=== PATIENT | female | born 1990 | race African-American/Black ===

== ENCOUNTER 2019-02-18 06:25 | Emergency (ER) | payer MEDICAID, OTHER ==
[~2019-02-18] VITALS: Ht 157.5 cm; Wt 58.1 kg
[2019-02-18 06:30] VITALS: BP 130/98
--- NOTE | 2019-02-18 06:31 | NUR ---
28 Y/O FEMALE BIBA FOR LEFT KNEE PAIN S/P FALL THIS MORNING. PAIN IS A 10/10 ACUTE PAIN. A/OX4 AND FOLLOWS COMMANDS. PATIENT IS UNABLE TO AMBULATE. LEFT KNEE SWELLING NOTED. PAIN UPON PALPATION NOTED. DENIES N/V/D/FEVER/CHILLS. VSS. ERMD MADE AWARE OF STATUS. SIDE RAILSX1. PMH:DENIES RX:DENIES NKDA
[2019-02-18] MEDS ORDERED: KETOROLAC 30 MG/ML VIAL IM ONE (06:50)
--- NOTE | 2019-02-18 07:28 | NUR ---
Pt report given to ARAMIS KRAMER. Transfer of care at this time.
--- NOTE | 2019-02-18 07:32 | NUR ---
PT DOES NOT WISH TO PROVIDE URINE SAMPLE AT THIS TIME.
--- NOTE | 2019-02-18 07:49 | NUR ---
EMT AT [facility] TO PROVIDE FLORES WRAP AND CRUTCHES.
--- NOTE | 2019-02-18 09:08 | NUR ---
PT RESTING IN BED SPEAKING ON CELL PHONE.
[2019-02-18 09:50] VITALS: BP 130/98
--- NOTE | 2019-02-18 09:51 | NUR ---
GINA VOUCHER PROVIDED TO PT.
== END 2019-02-18 09:47 | disposition home or self-care (01) ==
LOC: MED 06:25
DX: S83.92XA Sprain of unspecified site of left knee, initial encounter (principal); W01.0XXA Fall on same level from slipping, tripping and stumbling without subsequent striking against object, initial encounter; Y93.89 Activity, other specified; Y92.89 Other specified places as the place of occurrence of the external cause; Y99.8 Other external cause status
CPT/HCPCS: 73562; 96372; 99283; J1885

== ENCOUNTER 2019-07-06 22:05 | Emergency (ER) | payer MEDICAID, OTHER ==
[~2019-07-06] VITALS: Ht 162.6 cm; Wt 54.0 kg
[2019-07-06 22:09] VITALS: BP 106/67
[2019-07-06 23:02] LABS: BASOPHILS # (AUTO) 0.1 K/uL (0.00-0.22); BASOPHILS % (AUTO) 0.7 % (0.0-2.0); EOSINOPHILS # (AUTO) 0.1 K/uL (0-0.4); EOSINOPHILS % (AUTO) 0.9 % (0.0-4.0); HEMATOCRIT 35.9 % (36-48); HEMOGLOBIN 12.3 g/dL (12.0-16.0); LYMPHOCYTES # (AUTO) 2.5 K/uL (2.5-16.5); LYMPHOCYTES % (AUTO) 29.9 % (20.5-51.1); MEAN CORPUSCULAR HEMOGLOBIN 31 pg (27-31); MEAN CORPUSCULAR HGB CONC 34 g/dL (33-37); MEAN CORPUSCULAR VOLUME 91.2 fL (80-94); MONOCYTES # (AUTO) 0.7 K/uL (0.8-1.0); MONOCYTES % (AUTO) 8.4 % (1.7-9.3); NEUTROPHILS % (AUTO) 60.1 % (42.2-75.2); PLATELET COUNT (AUTO) 283 K/uL (140-450); RED BLOOD CELL COUNT(AUTO) 3.94 MIL/uL (4.20-5.40); RED CELL DISTRIBUTION WIDTH 11.9 % (11.6-13.7); WHITE BLOOD COUNT (AUTO) 8.4 K/uL (4.8-10.8)
[2019-07-06 23:08] VITALS: BP 106/67
[2019-07-06 23:17] LABS: ALBUMIN 3.7 g/dL (3.4-5.0); CARBON DIOXIDE 28.4 mmol/L (21-32); CREATININE 0.8 mg/dL (0.6-1.3); POTASSIUM 3.4 mmol/L (3.5-5.1)
== END 2019-07-06 23:08 | disposition home or self-care (01) ==
LOC: MED 22:05
DX: O03.9 Complete or unspecified spontaneous abortion without complication (principal)
CPT/HCPCS: 36415; 76801; 80053; 84702; 85025; 86900; 86901; 99284; Q0092

== ENCOUNTER 2019-11-16 11:07 | Emergency (ER) | payer OTHER ==
[~2019-11-16] VITALS: Ht 157.5 cm; Wt 52.8 kg
[2019-11-16 11:09] VITALS: BP 106/64
[2019-11-16] MEDS ORDERED: DOPPLER MC ONE (11:20)
--- NOTE | 2019-11-16 11:23 | NUR ---
29/F C/O SUPRAPUBIC PAIN, SHARP SENSATION, 8/10 PAIN, NON RADIATING X 4 DAYS. VOMITING SINCE YESTERDAY, DENIES HEMATEMESIS. UNABLE TO TOLERATE FOOD OR FLUIDS. CURRENTLY 9 WEEKS . DENIES DYSURIA,DIARRHEA, F/C. REGULAR BM. STATES MILD DIZZINESS AND GENERALIZED WEAKNESS. LMP 2 MONTHS AGO 3 MISCARRIAGE 1 LIVING 1 HX NO
--- NOTE | 2019-11-16 11:24 | NUR ---
DENIES VAGINAL BLEEDING
--- NOTE | 2019-11-16 11:47 | NUR ---
L&D NURSE AT BEDSIDE TO TRY TO OBTAIN HEART TONES, PER L&D NURSE NO HEART TONES AUSCULATATED.
[2019-11-16] MEDS: ONDANSETRON 4 MG ODT PO ONE (11:52)
--- NOTE | 2019-11-16 11:54 | NUR ---
PT UNABLE TO PROVIDE URINE SAMPLE AT THIS TIME, STATES HAS BEEN VOMITING MANY TIMES. DR. CLANCY MADE AWARE.
--- NOTE | 2019-11-16 12:01 | NUR ---
SENIOR LOSS CONTROL SPECIALIST AT BEDSIDE FOR BLOOD DRAW
[2019-11-16 12:07] LABS: BASOPHILS % (AUTO) 0.5 % (0.0-2.0); EOSINOPHILS # (AUTO) 0.1 K/uL (0-0.4); EOSINOPHILS % (AUTO) 0.8 % (0.0-4.0); HEMOGLOBIN 11.2 g/dL (12.0-16.0); LYMPHOCYTES # (AUTO) 1.8 K/uL (2.5-16.5); LYMPHOCYTES % (AUTO) 26.3 % (20.5-51.1); MEAN CORPUSCULAR HEMOGLOBIN 31 pg (27-31); MEAN CORPUSCULAR HGB CONC 34 g/dL (33-37); MEAN CORPUSCULAR VOLUME 90.4 fL (80-94); MONOCYTES # (AUTO) 0.6 K/uL (0.8-1.0); MONOCYTES % (AUTO) 9.2 % (1.7-9.3); NEUTROPHILS # (AUTO) 4.3 K/uL (1.8-7.7); NEUTROPHILS % (AUTO) 63.2 % (42.2-75.2); PLATELET COUNT (AUTO) 266 K/uL (140-450); RED BLOOD CELL COUNT(AUTO) 3.65 MIL/uL (4.20-5.40); RED CELL DISTRIBUTION WIDTH 12.1 % (11.6-13.7); WHITE BLOOD COUNT (AUTO) 6.8 K/uL (4.8-10.8)
--- NOTE | 2019-11-16 12:07 | NUR ---
U/S TECH AT BEDSIDE
--- NOTE | 2019-11-16 12:29 | NUR ---
DR. CLANCY EVALUATING PT AT BEDSIDE
[2019-11-16] MEDS: NACL 0.9% 1,000 ML IV ONE (12:51)
--- NOTE | 2019-11-16 12:53 | NUR ---
COVERING PRIMARY RN FOR LUNCH RELIEF -- ESTABLISHED SALINE LOCK TO RIGHT AC 20G, INFUSING 1L NS WITHOUT ISSUE. ENCOURAGED PATIENT TO VOID.
--- NOTE | 2019-11-16 13:18 | NUR ---
PT STILL UNABLE TO PROVIDE URINE SAMPLE AT THIS TIME, IVF NS INFUSING. PT STATES SHE WILL TRY AGAIN IN [address] ASTON SLAUGHTER.
--- NOTE | 2019-11-16 13:44 | NUR ---
URINE DIPSTICK RESULTS HANDED TO DR. CLANCY
[2019-11-16 14:04] VITALS: BP 100/72
== END 2019-11-16 14:04 | disposition home or self-care (01) ==
LOC: MED 11:07
DX: O21.9 Vomiting of pregnancy, unspecified (principal); O26.892 Other specified pregnancy related conditions, second trimester; R10.9 Unspecified abdominal pain; Z3A.10 10 weeks gestation of pregnancy
CPT/HCPCS: 36415; 76801; 81002; 84702; 85025; 96360; 99284; J7030; Q0092; Q0162

== ENCOUNTER 2020-05-21 05:20 | Observation (INO) | payer MEDICAID, SELFPAY ==
[~2020-05-21] VITALS: Ht 165.1 cm; Wt 65.8 kg
[2020-05-21] MEDS ORDERED: PNV91TAB8 PO (05:41)
[2020-05-21 05:54] VITALS: BP 107/61
[2020-05-21 05:56] LABS: APPEARANCE,URINE SL CLOUDY (CLEAR); BILIRUBIN,URINE NEGATIVE (NEGATIVE); BLOOD, URINE 1+ (NEGATIVE); COLOR,URINE YELLOW (YELLOW); LEUKOCYTE ESTERASE ,URINE TRACE (NEGATIVE); UGLUCOSE NEGATIVE (NEGATIVE)
[2020-05-21 06:05] LABS: WBC,URINE 0-5 /HPF (0-5)
[2020-05-21 06:07] LABS: NITRITE, URINE POSITIVE (NEGATIVE)
[2020-05-21] MEDS: LACTATED RINGERS 1,000 ML IV SCH ×2 (06:32→07:00)
[2020-05-21] MEDS ORDERED: NACL 0.9% 1,000 ML IV SCH (07:45)
--- NOTE | 2020-05-21 08:58 | NUR ---
PATIENT HAS BEEN SCREENED AND CATEGORIZED LOW NUTRITION RISK. PATIENT WILL BE SEEN WITHIN 7 DAYS OF ADMISSION. 05/27/[address]
== END 2020-05-21 14:25 | disposition home or self-care (01) ==
LOC: MLD 05:20
PROVIDERS: ADMIT Obstetrics & Gynecology; ATTEND Obstetrics & Gynecology
DX: O62.9 Abnormality of forces of labor, unspecified (principal); Z20.822 Contact with and (suspected) exposure to COVID-19; Z3A.36 36 weeks gestation of pregnancy
CPT/HCPCS: 81000; 81001; 87426; 96361; 96365; G0378; J0696; J7060; J7120; 96360

== ENCOUNTER 2020-10-16 17:35 | Emergency (ER) | payer MEDICAID, SELFPAY ==
[~2020-10-16] VITALS: Ht 157.5 cm; Wt 63.5 kg
[~2020-10-16 17:35] MED LIST: PNV91TAB8 PO
[2020-10-16 17:40] VITALS: BP 122/74
--- NOTE | 2020-10-16 18:19 | NUR ---
PT AMBULATED TO BED 5
--- NOTE | 2020-10-16 18:20 | NUR ---
30 Y/O FEMALE CAME IN TO THE ER C/O INGROWN HAIR IN THE VAGINAL AREA X 1 WEEK. PT STATES "I HAD AN INGROWN HAIR, AND WHEN I SHAVED IT, IT WAS REALLY PAINFUL, WHEN I WAS HAVING INTERCOURSE, IT ALSO WAS PAINFUL. THE VAGINAL SKIN AREA HAS A PAIN OF 10/10." PMH: DEMETRIUS CARLOS
[2020-10-16 18:25] VITALS: BP 122/74
--- NOTE | 2020-10-16 18:59 | NUR ---
Female Broaching Machine Repairer accompanied female patient for Vaginal Exam. Patient tolerated well.
[2020-10-16] MEDS ORDERED: LIDOCAINE/EPI 1% 1:100000 20 ML VIAL INJ ONE ×2 (19:15→19:25)
[2020-10-16] MEDS ORDERED: ACET-8386 PO (20:23)
[2020-10-16] MEDS ORDERED: IBUP-2213 PO (20:23)
--- NOTE | 2020-10-16 20:36 | NUR ---
PT. LEFT WITHOUT DISCHARGE PAPERS AND PRESCRIPTION PAPER.
== END 2020-10-16 20:36 | disposition home or self-care (01) ==
LOC: MED 17:35
DX: N76.4 Abscess of vulva (principal)
CPT/HCPCS: 56405; 81002; 81025; 99284; J2001

== ENCOUNTER 2023-06-08 12:26 | Emergency (ER) | payer MEDICAID ==
[~2023-06-08 12:26] MED LIST changes: +ACET-8905 PO; +IBUP-2213 PO
== END 2023-06-08 12:45 | disposition left against medical advice (07) ==
LOC: MED 12:26
DX: M54.50 Low back pain, unspecified (principal); Z53.21 Procedure and treatment not carried out due to patient leaving prior to being seen by health care provider